=== PATIENT | female | born 1950 | race Caucasian/White ===

== ENCOUNTER → 2019-09-29 | Outpatient (CLI) | payer MEDICARE ==
[~2019-09-29] MED LIST: METHACHOLINE KIT (J7674) INH ONE
--- NOTE | 2019-09-29 11:35 | PFTRPT ---
Height: 65.00 Inches Weight: 134.00 Lbs BSA: 1.67 Diagnosis: R06.02 DATE OF PROCEDURE: 09/29/2019 ORDERED BY: Dr. Upton INTERPRETATION: Study of excellent technical quality. Under protocol, methacholine was administered. Even after a maximal dose of 25 mg or 188.875 CDUs, no provocation dose ever achieved. IMPRESSION: Negative methacholine challenge study. MTDD
== END ==
LOC: M CARPUL 10:26
PROVIDERS: ATTEND Internal Medicine Pulmonary Disease
DX: R06.02 Shortness of breath (principal)
CPT/HCPCS: 94070; 95070; J7674

== ENCOUNTER → 2021-04-02 | Outpatient (CLI) | payer MEDICARE | LOC: M WHC 08:22 | PROVIDERS: ATTEND Family Medicine | DX: Z12.31 Encounter for screening mammogram for malignant neoplasm of breast (principal); Z78.0 Asymptomatic menopausal state; Z92.0 Personal history of contraception ==

== ENCOUNTER → 2021-08-14 | Outpatient (CLI) | payer MEDICARE ==
[2021-08-14 15:38] LABS: BLOOD UREA NITROGEN 16 MG/DL (7-18); CREATININE FOR GFR 0.84 MG/DL (0.55-1.30); GLOMERULAR FILTRATION RATE > 60.0 (>39)
== END ==
LOC: M LAB 14:11
PROVIDERS: ATTEND Otolaryngology
DX: H90.3 Sensorineural hearing loss, bilateral (principal); H93.A2 Pulsatile tinnitus, left ear

== ENCOUNTER → 2021-09-13 | Outpatient (CLI) | payer MEDICARE ==
[~2021-09-13] MED LIST changes: -METHACHOLINE KIT (J7674) INH ONE; +PROHANCE 279.3MG/ML 15ML VIAL As Ordered ONE
== END ==
LOC: M RAD 08:25
PROVIDERS: ATTEND Otolaryngology
DX: H93.A2 Pulsatile tinnitus, left ear (principal)
CPT/HCPCS: 70544; 70553; A9576

== ENCOUNTER → 2021-12-10 | Outpatient (CLI) | payer MEDICARE ==
[~2021-12-10] MED LIST changes: +BAYE81TA7 PO; +CALC-211 PO; +LISI10TA24 PO; -PROHANCE 279.3MG/ML 15ML VIAL As Ordered ONE; +SIMV40TA20 PO
== END ==
LOC: M LABSMTC 09:12
PROVIDERS: ATTEND Anesthesiology
DX: Z11.52 Encounter for screening for COVID-19 (principal); Z20.828 Contact with and (suspected) exposure to other viral communicable diseases

== ENCOUNTER 2021-12-12 07:24 | Day surgery (SDC) | payer MEDICARE ==
[~2021-12-12] VITALS: Ht 165.1 cm; Wt 58.5 kg
[~2021-12-12 07:24] MED LIST changes: +NS 1,000 ML IV ONE
[2021-12-12] MEDS ORDERED: propofoL 200 MG/20 ML VIAL As Ordered ONE ×2 (08:08→08:18)
[2021-12-12 08:43] VITALS: BP 124/50
== END 2021-12-12 08:45 | disposition home or self-care (01) ==
LOC: M OPP 07:24
PROVIDERS: ATTEND Surgery
DX: Z12.11 Encounter for screening for malignant neoplasm of colon (principal); K21.9 Gastro-esophageal reflux disease without esophagitis; E78.00 Pure hypercholesterolemia, unspecified; I10 Essential (primary) hypertension; Z79.02 Long term (current) use of antithrombotics/antiplatelets; Z79.82 Long term (current) use of aspirin; Z79.899 Other long term (current) drug therapy; Z88.2 Allergy status to sulfonamides

== ENCOUNTER → 2023-01-08 | Outpatient (CLI) | payer MEDICARE ==
[~2023-01-08] MED LIST changes: -NS 1,000 ML IV ONE
== END ==
LOC: M WHC 10:55
PROVIDERS: ATTEND Family Medicine
DX: Z12.31 Encounter for screening mammogram for malignant neoplasm of breast (principal); Z13.820 Encounter for screening for osteoporosis; M85.851 Other specified disorders of bone density and structure, right thigh; M85.852 Other specified disorders of bone density and structure, left thigh; M85.88 Other specified disorders of bone density and structure, other site

== ENCOUNTER → 2023-12-21 | Outpatient (REF) | payer MEDICARE | LOC: M LAB REF 16:31 | PROVIDERS: ATTEND Physician Assistant Medical | DX: R10.9 Unspecified abdominal pain (principal) ==

== ENCOUNTER → 2024-01-20 | Outpatient (CLI) | payer MEDICARE | LOC: M RAD 10:27 | PROVIDERS: ATTEND Family Medicine | DX: R10.11 Right upper quadrant pain (principal) ==

== ENCOUNTER → 2024-02-23 | Outpatient (CLI) | payer MEDICARE | LOC: M WHC 11:03 | PROVIDERS: ATTEND Family Medicine | DX: Z12.31 Encounter for screening mammogram for malignant neoplasm of breast (principal) ==

== ENCOUNTER → 2024-09-20 | Outpatient (REF) | payer MEDICARE | LOC: M LAB REF 10:09 | PROVIDERS: ATTEND Family Medicine | DX: E83.52 Hypercalcemia (principal) ==

== ENCOUNTER → 2025-02-23 | Outpatient (CLI) | payer MEDICARE | LOC: M WHC 09:21 | PROVIDERS: ATTEND Family Medicine | DX: Z12.31 Encounter for screening mammogram for malignant neoplasm of breast (principal); R92.323 Mammographic fibroglandular density, bilateral breasts ==